=== PATIENT | male | born 1970 | race Caucasian/White ===

== ENCOUNTER 2023-12-13 08:52 | Day surgery (SDC) | payer BC, OTHER ==
[2023-12-13] MEDS: Lactated Ringers 1,000 ML IV SCH (09:01)
[2023-12-13] MEDS ORDERED: Ketamine 200 MG/20 ML MDV ONE (09:08)
[2023-12-13] MEDS ORDERED: fentaNYL 50 MCG/ML SDV ONE (09:08)
[2023-12-13] MEDS ORDERED: Midazolam 1 MG/ML 2 ML SDV ONE (09:08)
[2023-12-13] MEDS ORDERED: Propofol 200 MG/20 ML SDV ONE ×2 (09:08)
== END 2023-12-13 10:31 | disposition home or self-care (01) ==
LOC: CC.SDS 08:52
PROVIDERS: ATTEND Family Medicine
DX: Z12.11 Encounter for screening for malignant neoplasm of colon (principal); D12.3 Benign neoplasm of transverse colon; D12.7 Benign neoplasm of rectosigmoid junction; D12.8 Benign neoplasm of rectum; K57.30 Diverticulosis of large intestine without perforation or abscess without bleeding; E78.5 Hyperlipidemia, unspecified; I10 Essential (primary) hypertension; M10.9 Gout, unspecified; M19.071 Primary osteoarthritis, right ankle and foot; Z87.891 Personal history of nicotine dependence; Z79.899 Other long term (current) drug therapy
CPT/HCPCS: 00811; J2250; J2704; J3010; J3490; J7120